=== PATIENT | female | born 1985 | race Caucasian/White ===

== ENCOUNTER 2016-11-06 17:35 | Emergency (ER) | payer MEDICAID ==
[~2016-11-06] VITALS: Ht 154.9 cm; Wt 49.9 kg
[~2016-11-06 17:35] MED LIST: AGM875T PO; ALB.5NB20 INH; ALPR.5T; ALPR1T PO; BPR150TCR; BPR75T PO; CHOL2000 PO; CIPR500S2; CPR500T PO; D-ME118S33 PO; DCS100C PO; DOXY100C2 PO; FAMO20TA5 PO; FLUC100T; HYDR-3063 PO; HYDR-34 PO; HYDR-3583 PO; HYDR1TAB3 PO; HYDR1TAB75 PO; HYDR1TAB8 OP; IBP800T PO; LEVO200T6 PO; LEVO25TA3; LEVO500T69 PO; LVT.05T PO; MELO-198 PO; METO-354 PO; MTR250T; ONDN4T PO; OXYC1TAB3; PRM25T PO; RIZA10TA23 PO; SPRINTEC PO; SULF-222 PO; TRAM50TA2 PO; VARE1TAB17; ZLP10T PO; ZLP5T PO
--- OUTSIDE RECORDS SUMMARY | 2016-11-06 17:41 | XMS REPORT | Continuity of Care Document ---
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 If you do not see the information that you expected, contact Release of Information in the Health Information Management department at [phone] for further assistance in locating additional records.[facility] Active Allergies and Adverse Reactions No Known Allergies Current Medications Prescription Sig. Disp. Refills Start End Date Status Date levothyroxine (SYNTHROID) Take 175 mcg by mouth Active 175 mcg tablet daily. HYDROcodone-acetaminophen Take 1 Tab by mouth every Active (+) (NORCO) 7.5-325 mg 6 hours as needed for tablet Pain. 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 Social History Tobacco Use Types Packs/Day Years Used Date Current Every Day Smoker Cigarettes 0.5 17 Smokeless Tobacco: Never Used Tobacco Cessation: Ready to Quit: No; Counseling Given: Yes Comments: Last Filed Vital Signs Vital Sign Reading Time Taken Blood Pressure 122/84 12/23/2014 11:52 AM CDT Pulse 99 12/23/2014 11:52 AM CDT Temperature - - Respiratory Rate - - Height 1.549 m (5' 1") 12/23/2014 11:52 AM CDT Weight 51.256 kg (113 lb) 12/23/2014 11:52 AM CDT Body Mass Index 21.36 12/23/2014 11:52 AM CDT Oxygen Saturation - - Plan of Care Health Maintenance Due Date Last Done Comments Physical (Comprehensive) 12/10/1991 Exam Pertussis Vaccine 12/10/1995 Tetanus Vaccine 2001 Cervical Cancer Screening 2005 Influenza Vaccine 05/18/2016 Results from Last 3 Months Not on file
[2016-11-06] MEDS ORDERED: NS IV 1000 ML 1,000 ML IV ONE (18:38)
[2016-11-06 19:03] LABS: BASOPHILS # (AUTO) 0.1 10^3/uL (0.0-0.1); BASOPHILS % (AUTO) 1 % (0-10); BILIRUBIN,URINE NEGATIVE (NEGATIVE); EOSINOPHILS # (AUTO) 0.3 10^3/uL (0.0-0.3); EOSINOPHILS % (AUTO) 3 % (0-10); KETONES,URINE NEGATIVE (NEGATIVE); LEUKOCYTE ESTERASE ,URINE 3+ (NEGATIVE); LYMPHOCYTES % (AUTO) 40 % (12-44); MEAN CORPUSCULAR HEMOGLOBIN 32 PG (25-34); MEAN CORPUSCULAR HGB CONC 34 G/DL (32-36); MEAN CORPUSCULAR VOLUME 95 FL (80-99); MONOCYTES # (AUTO) 0.4 X 10^3 (0.0-1.0); MONOCYTES % (AUTO) 4 % (0-12); NEUTROPHILS # (AUTO) 5.2 X 10^3 (1.8-7.8); NEUTROPHILS % (AUTO) 52 % (42-75); NITRITE,URINE NEGATIVE (NEGATIVE); PH,URINE 6 (5-9); PLATELET COUNT 398 10^3/uL (130-400); PROTEIN,URINE NEGATIVE (NEGATIVE); RED BLOOD COUNT 3.93 10^6/uL (4.35-5.85); RED CELL DISTRIBUTION WIDTH 13.3 % (10.0-14.5); UROBILINOGEN,URINE NORMAL (NORMAL)
[2016-11-06 19:31] LABS: ALANINE AMINOTRANSFERASE 14 U/L (0-55); ALBUMIN 4.6 G/DL (3.2-4.5); ANION GAP 13 MMOL/L (5-14); ASPARTATE AMINO TRANSFERASE 30 U/L (5-34); BILIRUBIN,TOTAL 0.2 MG/DL (0.1-1.0); BLOOD UREA NITROGEN 12 MG/DL (7-18); BUN/CREATININE RATIO 11; CALCIUM 9.6 MG/DL (8.5-10.1); CARBON DIOXIDE 23 MMOL/L (21-32); CHLORIDE 105 MMOL/L (98-107); CREATININE SERUM 1.07 MG/DL (0.60-1.30); GFR ESTIMATED 60; GLUCOSE 85 MG/DL (70-105); MAGNESIUM 2.5 MG/DL (1.8-2.4); POTASSIUM 4.4 MMOL/L (3.6-5.0); SODIUM 141 MMOL/L (135-145); TOTAL PROTEIN 7.7 G/DL (6.4-8.2)
--- NOTE | 2016-11-06 19:32 | Diagnostic Imaging Report ---
INDICATION: Cough, fever, chills, onset two weeks prior. TECHNIQUE: Two view chest at 7:21 p.m. CORRELATION STUDY: None. FINDINGS: The heart size, mediastinal configuration and pulmonary vasculature are within normal limits. The lungs are clear with no consolidating infiltrate. There is no significant pleural effusion or pneumothorax. Visualized osseous structures are unremarkable. IMPRESSION: 1. No radiographic evidence for acute abnormality of the chest. Dictated by: Dictated on workstation # [id number]
[2016-11-06 20:21] LABS: THYROID STIMULATING HORMONE 264.47 UIU/ML (0.35-4.94)
[2016-11-06] MEDS ORDERED: CEPHALEXIN 250 MG (KEFLEX) CAP PO ONE (20:45)
[2016-11-06] MEDS ORDERED: LEVOTHYROXINE 50 MCG (LEVOTHROID) TAB PO ONE (20:45)
[2016-11-06] MEDS ORDERED: CEPH-507 PO (20:47)
[2016-11-06] MEDS ORDERED: LEVO50TA6 PO (20:47)
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
[2016-11-06 20:55] VITALS: BP 130/73
== END 2016-11-06 20:55 | disposition home or self-care (01) ==
LOC: EDUNIT# 17:35 → ER 17:37
DX: N39.0 Urinary tract infection, site not specified (principal); E89.0 Postprocedural hypothyroidism; F17.210 Nicotine dependence, cigarettes, uncomplicated; Z85.850 Personal history of malignant neoplasm of thyroid; R51 Headache; R05 Cough
CPT/HCPCS: 36415; 71020; 80053; 81000; 83735; 84439; 84443; 85025; 87088; 87804; 96360; 96361